=== PATIENT | male | born 1950 | race American Indian/Alaskan Native ===

== ENCOUNTER 2016-05-13 16:30 | Inpatient (IN) | payer MEDICAID, OTHER ==
--- NOTE | 2016-05-13 18:30 | CT ---
PROCEDURE: CT HEAD WITHOUT CONTRAST. HISTORY: R/O Bleed COMPARISON: None available. TECHNIQUE: Axial computed tomography images were obtained through the head/brain without intravenous contrast. Radiation dose: Total exam DLP = 1021.08 MGy-cm. This CT exam was performed using one or more of the following dose reduction techniques: Automated exposure control, adjustment of the mA and/or kV according to patient size, and/or use of iterative reconstruction technique. FINDINGS: HEMORRHAGE: No intracranial hemorrhage. BRAIN: Diffuse atrophy with prominence of the ventricles and sulci noted. No mass effect or edema. Mild scattered white matter hypodensities, which are nonspecific, but often seen with chronic microvascular ischemic disease. Please note that MRI with diffusion imaging is more sensitive in the detection of acute ischemic event. VENTRICLES: No hydrocephalus. CALVARIUM: Unremarkable. PARANASAL SINUSES: Unremarkable as visualized. No significant inflammatory changes. MASTOID AIR CELLS: Unremarkable as visualized. No inflammatory changes. OTHER FINDINGS: None. IMPRESSION: Generalized atrophy. Nonspecific white matter changes.
--- NOTE | 2016-05-13 18:49 | C.PDOC ---
History Of Present Illness 65 y/o male brought in by EMS from [facility]. Pt doesn't know why he is here. Pt states he was trying to take the train to [place] and that's the last he remembers. Pt reports diffuse body aches, mostly right arm and left leg. Pt denies drinking alcohol, fall, neck or head pain, chest pain, SOB, fever, chills , nausea, vomiting or any other complaints. Time Seen by Provider: 05/13/16 17:40 Chief Complaint (Nursing): Medical Clearance History Per: Patient History/Exam Limitations: clinical condition Onset/Duration Of Symptoms: Hrs Current Symptoms Are (Timing): Still Present Severity: Mild Recent travel outside of the [facility]: No Past Medical History Reviewed: Historical Data, Nursing Documentation, Vital Signs Vital Signs: Last Vital Signs Temp 97 F L 05/13/16 16:46 Pulse 81 05/13/16 16:46 Resp 20 05/13/16 16:46 BP 169/90 H 05/13/16 16:46 Pulse Ox 97 05/13/16 18:52 - Medical History PMH: Seizures Family History: States: Unknown Family Hx - Social History Hx Alcohol Use: Yes 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 Negative for: Neck Pain, Back Pain Neurological: Negative for: Headache Physical Exam - Physical Exam Appears: Non-toxic, No Acute Distress, Unkempt, Other (covered in feces; no external signs of trauma) Skin: Warm, Dry, No Rash Head: Atraumatic, Normacephalic, No Swelling, No Abrasion, No Laceration Nose: Normal Neck: Normal ROM, No Midline Cervical Tenderness, No Paracervical Tenderness, Supple Chest: Symmetrical, No Tenderness Cardiovascular: Rhythm Regular, No Murmur Respiratory: Normal Breath Sounds, No Rales, No Rhonchi, No Wheezing Gastrointestinal/Abdominal: Soft, No Tenderness Extremity: Normal ROM, Other (diffuse pain to palpation of all extremities) Extremity: Bilateral: Atraumatic Neurological/Psych: Normal Motor, Normal Sensation ED Course And Treatment O2 Sat by Pulse Oximetry: 97 (on room air) Pulse Ox Interpretation: Normal - CT Scan/US CT head Other Rad Studies (CT/US): Read By Radiologist, Radiology Report Reviewed CT/US Interpretation: Accession No. : [id number]. Patient Name / ID : JEOVANY PINA / [id number]. Exam Date : 05/13/2016 18:14:48 ( Approved ). Study Comment : Sex / Age : M / 65Y. Creator : Kristin Kern MD. Dictator : Kristin Kern MD. Nursery Helper : Diagnostic Radiologic Technologist : Kristin Kern MD. Approver2 : Report Date : 05/13/2016 18:27:41. My Comment : . PROCEDURE: CT HEAD WITHOUT CONTRAST. HISTORY: R/O Bleed. COMPARISON: None available. TECHNIQUE: Axial computed tomography images were obtained through the head/brain without intravenous contrast. Radiation dose: Total exam DLP = 1021.08 MGy-cm. This CT exam was performed using one or more of the following dose reduction techniques: Automated exposure control, adjustment of the mA and/or kV according to patient size, and/or use of iterative reconstruction technique. FINDINGS: HEMORRHAGE: No intracranial hemorrhage. BRAIN: Diffuse atrophy with prominence of the ventricles and sulci noted. No mass effect or edema. Mild scattered white matter hypodensities, which are nonspecific, but often seen with chronic microvascular ischemic disease. Please note that MRI with diffusion imaging is more sensitive in the detection of acute ischemic event. VENTRICLES: No hydrocephalus. CALVARIUM: Unremarkable. PARANASAL SINUSES: Unremarkable as visualized. No significant inflammatory changes. MASTOID AIR CELLS: Unremarkable as visualized. No inflammatory changes. OTHER FINDINGS: None. IMPRESSION: Generalized atrophy. Nonspecific white matter changes. Progress Note: Plan: labs, etoh level, head ct, shower Disposition - Disposition Disposition Time: 18:59 Condition: STABLE - Clinical Impression Clinical Impression: Pain - Scribe Statement The provider has reviewed the documentation as recorded by the Cesarioibmichele Shepard Provider Attestation: All medical record entries made by the Cesarioibe were at my direction and personally dictated by me. I have reviewed the chart and agree that the record accurately reflects my personal performance of the history, physical exam, medical decision making, and the department course for this patient. I have also personally directed, reviewed, and agree with the discharge instructions and disposition. Physician Patient Turnover Patient Signed Over To: Valerie Waterman Handoff Comments: homeless, states he does not recall why he is here, pending labs, head ct, dispo,
[2016-05-13 19:33] LABS: RBC URINE < 1 /hpf (0-3); URINE BILIRUBIN NEGATIVE (NEGATIVE); URINE BLOOD NEGATIVE (NEGATIVE); URINE COLOR Yellow (YELLOW); URINE GLUCOSE (UA) NORMAL (Normal); URINE KETONE NEGATIVE (NEGATIVE); URINE LEUKOCYTE ESTERASE NEG Leu/uL (Negative); URINE PROTEIN 2+ mg/dL (NEGATIVE); WBC URINE < 1 /hpf (0-5)
[2016-05-13 19:34] LABS: BASO # 0.1 K/uL (0.0-0.2); BASO % 0.8 % (0.0-2.0); EOS % 0.2 % (0.0-4.0); HEMATOCRIT 37.3 % (35.0-51.0); LYMPH # 0.9 K/uL (1.0-4.3); LYMPH % 13.3 % (20.0-40.0); MEAN CELL VOLUME 79.1 fL (80.0-94.0); MEAN CORPUSCULAR HGB CONC 31.6 g/dL (33.0-37.0); MEAN PLATELET VOLUME 9.9 fL (7.2-11.7); MONO # 0.5 K/uL (0.0-0.8); MONO % 8.1 % (0.0-10.0); NRBC % 0.1 % (0.0-2.0); RED CELL DISTRIBUTION WIDTH 14.7 % (11.5-14.5); WHITE BLOOD COUNT 6.8 K/uL (4.8-10.8)
[2016-05-13 19:39] LABS: CHLORIDE 101 mmol/L (98-107); SODIUM 137 mmol/L (132-148)
[2016-05-13 19:40] LABS: POTASSIUM 4.6 mmol/L (3.6-5.2)
[2016-05-13 19:42] LABS: ALKALINE PHOSPHATASE 160 U/L (38-126); ALT/SGPT 66 U/L (21-72); AST/SGOT 87 U/L (17-59); BILIRUBIN,TOTAL 1.2 mg/dL (0.2-1.3); BLOOD UREA NITROGEN 57 mg/dL (9-20); CALCIUM 8.6 mg/dl (8.6-10.4); CARBON DIOXIDE 19 mmol/L (22-30); GFR AFRICAN-AMERICAN 20; GLUCOSE,RANDOM 107 mg/dL (75-110); TOTAL PROTEIN 7.7 g/dL (6.3-8.3)
[2016-05-13 19:43] LABS: ALCOHOL SERUM < 10 mg/dl (0-10)
[2016-05-13] MEDS ORDERED: Sodium Chloride 0.9% 1,000 ML IV ONE (20:07)
--- NOTE | 2016-05-13 21:41 | CP.PCM.HP ---
<Ingrid Parikh - Last Filed: 05/13/16 22:35> History of Present Illness - History of Present Illness History of Present Illness: CC: " I came by ambulance" 65 year old male with PMHx of seizures, presents to the ED via ambulance after being found at [facility] covered in urine and feces. Patient is a poor historian. Reports he does not know what happened, just that he was about to take a train to [place]. He admits to history of seizures and states he has not had one in a long time. However, as per chart, patient was in the ED on 01/2016 for possible seizure and alcohol intoxication. Patient left AMA during that visit. Last reported seizure before that was in 09/2015. Patient does not take medications for his seizures and states he is homeless. He admits to bilateral leg aches that have been ongoing for the past couple of weeks. He reports he is having trouble walking secondary to the pain. Denies abdominal pain, nausea, vomiting, headaches, fevers, chills, chest pain, SOB, dyspnea on exertion. Patient did not wish to answer further ROS. PMHx: seizures Meds: none Allergies: none Family Hx: denies Surgeries: denies Social Hx: denies ever using drugs or alcohol. Denies tobacco use. As per chart , patient has history of alcohol and heroin use. PMD: none Present on Admission - Present on Admission Any Indicators Present on Admission: No Review of Systems - Constitutional Constitutional: absent: Chills, Fatigue, Fever - EENT Eyes: absent: Blurred Vision, Change in Vision - Cardiovascular Cardiovascular: absent: Chest Pain, Dyspnea - Respiratory Respiratory: absent: Cough, Dyspnea - Gastrointestinal Gastrointestinal: absent: Abdominal Pain, Constipation, Diarrhea, Nausea, Vomiting - Genitourinary Genitourinary: absent: Difficulty Urinating, Dysuria - Musculoskeletal Musculoskeletal: Arthralgias. absent: Back Pain, Numbness, Tingling - Integumentary Integumentary: absent: Lesions, Unusual Bruising, Wounds - Neurological Neurological: Headaches. 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) - SURGICAL HISTORY Hx Surgeries: No Other/Comment: Pt denies any medical history - ANESTHESIA Hx Anesthesia: No Meds Allergies/Adverse Reactions: Allergies Allergy/AdvReac Type Severity Reaction Status Date / Time No Known Allergies Allergy Verified 07/12/15 02:29 Physical Exam - Constitutional Appears: No Acute Distress, Unkempt - Head Exam Head Exam: ATRAUMATIC, NORMAL INSPECTION - Eye Exam Eye Exam: EOMI, Normal appearance - ENT Exam ENT Exam: Mucous Membranes Moist - Neck Exam Neck exam: Positive for: Full Rom, Normal Inspection - Respiratory Exam Respiratory Exam: Clear to Auscultation Bilateral, NORMAL BREATHING PATTERN - Cardiovascular Exam Cardiovascular Exam: REGULAR RHYTHM, +S1, +S2 - GI/Abdominal Exam GI & Abdominal Exam: Normal Bowel Sounds, Soft. absent: Distended, Tenderness - Extremities Exam Extremities exam: Positive for: full ROM, normal inspection, pedal edema, pedal pulses present - Back Exam Back exam: NORMAL INSPECTION - Neurological Exam Neurological exam: Alert, Oriented x3 - Expanded Neurological Exam Expanded Patient oriented to: person, place, time Upper motor neuron: Babinski Sign: Normal Sensory exam: Lower Extremity Light Touch: Normal, Upper Extremity Light Touch: Normal Coma Scale Eye Opening: To Voice Coma Scale Motor Response: OBEYS COMMANDS Coma Scale Verbal: Oriented Coma Scale Total: 14 - Psychiatric Exam Psychiatric exam: Flat Affect, Normal Mood - Skin Skin Exam: Dry, Normal Color, Warm Additional comments: +track chambers on bilateral forearms Results - Vital Signs Recent Vital Signs: Last Vital Signs Temp 98.8 F 05/13/16 20:40 Pulse 89 05/13/16 20:40 Resp 18 05/13/16 20:40 BP 170/81 H 05/13/16 20:40 Pulse Ox 98 05/13/16 20:40 - Labs Result Diagrams: 05/13/16 19:31 05/13/16 19:31 Assessment & Plan (1) Altered mental status, unspecified Assessment and Plan: Patient is AAO at time of exam. Patient was brought in by EMS after being found at [facility] covered in urine and feces, which patient does not remember. Patient is homeless, has history of seizures and is off medications. Patient also has history of ETOH use as per chart, which he denies. Head CT: Generalized atrophy. Nonspecific white matter changes. No intracranial hemorrhage. DANII negative on admission. Alcohol quant <10 UDS negative f/u EKG f/u Vit B12, Vit D f/u EEG in the AM Fall risk protocol Seizure precautions Aspiration precautions Status: Acute (2) History of seizure Assessment and Plan: Patient is homeless, has history of seizures and is off medications. Patient also has history of ETOH use as per chart, which he denies. Head CT: Generalized atrophy. Nonspecific white matter changes. No intracranial hemorrhage. f/u EEG in the AM Fall risk protocol Seizure precautions Aspiration precautions Status: Chronic (3) Renal insufficiency Assessment and Plan: f/u renal US f/u urine Na, Cr Status: Chronic (4) History of alcohol use Assessment and Plan: Likely reason for abnormal liver function tests. Patient does not show clinical signs of withdrawal. Alcohol quant <10 UDS negative MV PO daily Folic Acid PO daily Thiamine 100 mg PO daily Fall risk protocol Seizure precautions Aspiration precautions Status: Acute (5) Elevated brain natriuretic peptide (BNP) level Assessment and Plan: BNP on admission 2780. Patient with LE edema bilaterally. f/u EKG f/u CXR Will consider ECHO pending above studies. Low salt diet Status: Acute (6) HTN (hypertension) Assessment and Plan: 169/90 Will monitor for now and add medications as needed. Status: Acute (7) Prophylactic measure Assessment and Plan: Heparin SC Q8H Pepcid 20 mg PO BID Status: Acute <Jose Stallworth P - Last Filed: 05/24/16 22:17> Results - Vital Signs Recent Vital Signs: Last Vital Signs Temp 98.2 F 05/15/16 08:34 Pulse 70 05/15/16 08:34 Resp 20 05/15/16 08:34 BP 160/94 H 05/15/16 08:34 Pulse Ox 97 05/15/16 08:34 - Labs Result Diagrams: 05/14/16 10:44 05/14/16 10:44 Attending/Attestation - Attestation I have personally seen and examined this patient.: Yes I have fully participated in the care of the patient.: Yes I have reviewed all pertinent clinical information: Yes
[2016-05-13] MEDS: Sodium Chloride 0.9% 1,000 ML IV SCH (23:04)
[2016-05-13] MEDS ORDERED: Sodium Chloride 0.9% 1,000 ML ONE (23:08)
[2016-05-14 03:04] LABS: CREATININE, RANDOM URINE 53.8 mg/dL
[2016-05-14] MEDS ORDERED: Multiple Vitamins Tab PO SCH (10:00)
--- NOTE | 2016-05-14 10:39 | RAD ---
PROCEDURE: CHEST RADIOGRAPH, 1 VIEW HISTORY: leg swelling, AMS COMPARISON: None available. FINDINGS: LUNGS: Clear. PLEURA: No pneumothorax or pleural fluid seen. CARDIOVASCULAR: Normal. OSSEOUS STRUCTURES: No significant abnormalities. VISUALIZED UPPER ABDOMEN: Normal. OTHER FINDINGS: None. IMPRESSION: No active disease.
[2016-05-14] MEDS: Sodium Chloride 0.9% 1,000 ML IV SCH (10:48)
[2016-05-14 10:53] LABS: BASO % 0.9 % (0.0-2.0); EOS % 0.9 % (0.0-4.0); HEMATOCRIT 34.9 % (35.0-51.0); LYMPH # 1.1 K/uL (1.0-4.3); LYMPH % 22.1 % (20.0-40.0); MEAN CELL VOLUME 79.7 fL (80.0-94.0); MEAN CORPUSCULAR HEMOGLOBIN 24.9 pg (27.0-31.0); MEAN CORPUSCULAR HGB CONC 31.2 g/dL (33.0-37.0); MEAN PLATELET VOLUME 10.7 fL (7.2-11.7); MONO # 0.5 K/uL (0.0-0.8); MONO % 9.5 % (0.0-10.0); RED CELL DISTRIBUTION WIDTH 14.5 % (11.5-14.5); WHITE BLOOD COUNT 5.1 K/uL (4.8-10.8)
[2016-05-14 11:07] LABS: POTASSIUM 4.2 mmol/L (3.6-5.2)
[2016-05-14 11:09] LABS: BILIRUBIN,TOTAL 0.9 mg/dL (0.2-1.3)
[2016-05-14 11:10] LABS: ALB/GLOB RATIO 0.9 (1.0-2.1); PHOSPHOROUS 4.2 mg/dL (2.5-4.5); TOTAL PROTEIN 6.7 g/dL (6.3-8.3)
--- NOTE | 2016-05-14 13:42 | US ---
PROCEDURE: Ultrasound of the Kidneys HISTORY: renal failure COMPARISON: None available. TECHNIQUE: Sonogram of the kidneys. FINDINGS: Limited study. RIGHT KIDNEY: Measures: 9.8 x 6.5 x 4.7 cm. Mild fullness of the right renal pelvis. No obstructing calculus or renal cysts identified. LEFT KIDNEY: Measures: 9.1 x 5.0 x 3.9 cm. Mild fullness of the left renal collecting system. No obstructing calculus or renal cysts identified. OTHER FINDINGS: Prevoid urinary bladder measures approximately 9.2 x 7.3 x 7.4 cm, calculated volume 258.9 mL. IMPRESSION: Limited study. Mild fullness of the right renal pelvis. Mild fullness of the left renal collecting system. No obstructing calculus identified. Prevoid urinary bladder, calculated volume 258.9 mL.
--- NOTE | 2016-05-14 14:35 | CP.PCM.PN ---
<Gerald Kyle - Last Filed: 05/14/16 14:31> Subjective - Date & Time of Evaluation Date of Evaluation: 05/14/16 Time of Evaluation: 14:31 - Subjective Subjective: PGY-1 note for medicine service Pt seen and examined at bedside. Pt reports not overnight events. Patient states he does not feel good and is experiencing b/l leg pain. Patient reports pain as 8/10. Patient is unable to describe pain, but just states that he doesn' t feel like he can walk on them. Patient still has no recollection of previous days events and cause of admission. Denies fevers, chills, chest pain, sob, nausea or vomiting Objective - Vital Signs/Intake and Output Vital Signs (last 24 hours): Temp Pulse Resp BP Pulse Ox 98.2 F 85 18 156/79 H 96 05/14/16 07:00 05/14/16 07:00 05/14/16 07:00 05/14/16 07:00 05/14/16 07:00 Intake and Output: 05/14/16 05/14/16 06:59 18:59 Output Total 600 Balance -600 - Medications Medications: Current Medications Amlodipine Besylate (Norvasc) 5 mg PO DAILY [facility] Last Admin: 05/14/16 10:47 Dose: 5 mg Famotidine (Pepcid) 20 mg PO DAILY [facility] Folic Acid (Folic Acid) 1 mg PO DAILY [facility] Last Admin: 05/14/16 10:48 Dose: 1 mg Heparin Sodium (Porcine) (Heparin) 5,000 units SC Q8 [facility] Last Admin: 05/14/16 14:22 Dose: 5,000 units Sodium Chloride (Sodium Chloride 0.9%) 1,000 mls @ 100 mls/hr IV .Q10H [facility] Last Admin: 05/14/16 10:48 Dose: 100 mls/hr Influenza Virus Vaccine (Afluria) 45 mcg IM .ONCE ONE Stop: 05/16/16 14:01 Multivitamins (Hexavitamin) 1 tab PO DAILY [facility] Last Admin: 05/14/16 10:47 Dose: 1 tab Pneumococcal Polyvalent Vaccine (Pneumovax 23 Vaccine) 0.5 ml IM .ONCE ONE Stop: 05/16/16 14:01 Thiamine HCl (Vitamin B1 Tab) 100 mg PO DAILY [facility] Last Admin: 05/14/16 10:48 Dose: 100 mg - Labs Labs: 05/14/16 10:44 05/14/16 10:44 - Constitutional Appears: Non-toxic, No Acute Distress - Head Exam Head Exam: ATRAUMATIC, NORMOCEPHALIC - ENT Exam ENT Exam: Mucous Membranes Moist - Respiratory Exam Respiratory Exam: Clear to Ausculation Bilateral, NORMAL BREATHING PATTERN - Cardiovascular Exam Cardiovascular Exam: +S1, +S2 - GI/Abdominal Exam GI & Abdominal Exam: Soft, Normal Bowel Sounds - Neurological Exam Neurological Exam: Alert, Awake - Psychiatric Exam Psychiatric exam: Flat Affect - Skin Skin Exam: Dry, Warm Assessment and Plan - Assessment and Plan (Free Text) Assessment: Altered mental status, unspecified - Currently AAO x 3 - Patient is homeless, has history of seizures and is off medications. Pt reports never having medications - Patient also has history of ETOH use as per chart, which he denies. - Head CT: Generalized atrophy. Nonspecific white matter changes. No intracranial hemorrhage. - DANII negative on admission - follow serial DANII - f/u - Alcohol quant <10 - UDS negative - Ammonia - wnl - EKG - NSR at 88, left ant fascicular block - Vit B12: wnl, Vit D: low - EEG in the - Neuro ([place]) consulted - help appreciated - f/u recs - Fall risk protocol - Seizure precautions - Aspiration precautions History of seizure - Head CT: Generalized atrophy. Nonspecific white matter changes. No intracranial hemorrhage. - f/u EEG in the [facility] ([place]) consulted - help appreciated - f/u recs - Fall risk protocol - Seizure precautions - Aspiration precautions Renal insufficiency - renal US - Limited study. Mild fullness of the right renal pelvis. Mild fullness of the left renal collecting system. No obstructing calculus identified.Prevoid urinary bladder, calculated volume 258.9 mL. - urine Na, Cr - 65, 54 - Cr trending down - Monitor History of alcohol use - Likely reason for abnormal liver function tests. - Patient does not show clinical signs of withdrawal. - Alcohol quant <10 - UDS negative - MV PO daily - Folic Acid PO daily - Thiamine 100 mg PO daily - Fall risk protocol - Seizure precautions - Aspiration precautions Elevated brain natriuretic peptide (BNP) level - BNP on admission 2780. Patient with LE edema bilaterally 1+ - EKG - NSR at 88, left ant fascicular block - CXR - no active disease - Ordered echo - pending read - Low salt diet HTN (hypertension) - Elevated - Added norvasc 5mg daily - Continue to monitor LE pain - 1+ pitting edema - A1C - 6.2 - Dopplers - f/u Prophylactic measure - Heparin SC Q8H - Pepcid 20 mg PO BID <Yue Doshi V - Last Filed: 05/14/16 17:44> Objective - Vital Signs/Intake and Output Vital Signs (last 24 hours): Temp Pulse Resp BP Pulse Ox 98.4 F 58 L 20 149/78 95 05/14/16 16:10 05/14/16 16:58 05/14/16 16:10 05/14/16 16:10 05/14/16 16:10 Intake and Output: 05/14/16 05/14/16 06:59 18:59 Output Total 600 Balance -600 - Medications Medications: Current Medications Amlodipine Besylate (Norvasc) 5 mg PO DAILY [facility] Last Admin: 05/14/16 10:47 Dose: 5 mg Famotidine (Pepcid) 20 mg PO DAILY [facility] Folic Acid (Folic Acid) 1 mg PO DAILY [facility] Last Admin: 05/14/16 10:48 Dose: 1 mg Heparin Sodium (Porcine) (Heparin) 5,000 units SC Q8 [facility] Last Admin: 05/14/16 14:22 Dose: 5,000 units Sodium Chloride (Sodium Chloride 0.9%) 1,000 mls @ 100 mls/hr IV .Q10H [facility] Last Admin: 05/14/16 10:48 Dose: 100 mls/hr Influenza Virus Vaccine (Afluria) 45 mcg IM .ONCE ONE Stop: 05/16/16 14:01 Multivitamins (Hexavitamin) 1 tab PO DAILY [facility] Last Admin: 05/14/16 10:47 Dose: 1 tab Pneumococcal Polyvalent Vaccine (Pneumovax 23 Vaccine) 0.5 ml IM .ONCE ONE Stop: 05/16/16 14:01 Thiamine HCl (Vitamin B1 Tab) 100 mg PO DAILY [facility] Last Admin: 05/14/16 10:48 Dose: 100 mg - Labs Labs: 05/14/16 10:44 05/14/16 10:44 Attending/Attestation - Attestation I have personally seen and examined this patient.: Yes I have fully participated in the care of the patient.: Yes Notes (Text): Patient seen, examined and case discussed with day-time resident. Patient seen this morning. Patient is AAOX3, patient reports [place] [facility]. Patient unable to describe circumstances which prompted the police pick him up and bring to the hospital. Patient has a history of seizures , reports last seizure was 2 years ago, and reports he does not take any medications. Patient denies alcohol and denies drug use. patient reports his main concern is his legs. Patient reports he has pain in the legs. Patient ordered for lower venous dopplers r/o DVT. No events noted during the day. 1) Altered mental status, unspecified * Currently AAO x 3 * Patient is homeless, has history of seizures and is off medications. Pt reports never having medications * Patient also has history of ETOH use as per chart, which he denies. * Head CT (05/13/16): Generalized atrophy. Nonspecific white matter changes. No intracranial hemorrhage. * DANII negative on admission - follow serial DANII - f/u * Alcohol quant <10; patient does not appear to be in withdrawal, no observed tremors * UDS negative * Ammonia - wnl * EKG - NSR at 88, left ant fascicular block; DANII @5:30PM and 10:30PM * Vit B12: wnl, Vit D: low * EEG in the AM * Neuro ([place]) consulted - help appreciated * Fall risk protocol * Seizure precautions * Aspiration precautions 2) History of seizure * Head CT (05/13/16): Generalized atrophy. Nonspecific white matter changes. No intracranial hemorrhage. * f/u EEG in the AM * Neuro ([place]) consulted - help appreciated * Fall risk protocol * Seizure precautions * Aspiration precautions * prolactin normal 3) Acute on Chronic Renal insufficiency * renal US (05/14/16) - Limited study. Mild fullness of the right renal pelvis. Mild fullness of the left renal collecting system. No obstructing calculus identified.Prevoid urinary bladder, calculated volume 258.9 mL. * Bladder PRN to be performed by nurse; patient reports he urinates * Prior GFR: 20-30s; prior Cr: 2.5 about one year ago * urine Na, Cr - 65, 54 * UA shows protein 4) History of alcohol use * mild transaminitis * Patient does not show clinical signs of withdrawal. * Alcohol quant <10 * UDS negative * MV1 1 tab PO daily * Folic Acid PO daily * Thiamine 100 mg PO daily * Fall risk protocol * Seizure precautions * Aspiration precautions 5) Elevated brain natriuretic peptide (BNP) level * BNP on admission 2780. Patient with LE edema bilaterally 1+; likely due to renal disease * EKG - NSR at 88, left ant fascicular block * CXR - no active disease * Echo (05/14/16): left ventricle is normal size, normal ventricular wall thickness, left ventricul function is normal, left ventricular ejection, fraction is within the normal range, normal LV segmental wall motion, grade 1- abnormal relazation, mitral regurgitation is trace to mild * Low salt diet 6) HTN (hypertension) * Norvasc 5mg daily; may need storm or arb * d/c IV fluids * monitor vital signs 7) Lower extremity pain * trace edema * Dopplers (venous dopplers) negative 8) Anemia * likely secondary to anemia of chronic disease * ordered for iron studies, reticulocyte count, B12, folate, and occult blood 9)Prophylactic measure * DVT ppx: Heparin 5000 units SC Q8H * GI ppx: Pepcid 20 mg PO daily * PT eval
--- NOTE | 2016-05-14 14:40 | VASCLAB ---
PROCEDURE: Lower Extremity Venous Duplex Exam. HISTORY: Leg swelling PRIORS: None. TECHNIQUE: Bilateral common femoral, femoral, popliteal and posterior tibial, peroneal and great saphenous veins were evaluated. Flow was assessed with color Doppler, compressibility, assessment of phasic flow and augmentation response. Report prepared by DIDI Kaiser, RVT FINDINGS: RIGHT: 1. Common Femoral Vein: 1.1. Compressibility - Fully compressible: Thrombus - None : Flow - Phasic: Augmentation -Normal: Reflux - None. 2. Femoral Vein: 2.1. Compressibility - Fully compressible: Thrombus - None : Flow - Phasic: Augmentation -Normal: Reflux - None. 3. Popliteal Vein: 3.1. Compressibility - Fully compressible: Thrombus - None : Flow - Phasic: Augmentation -Normal: Reflux - None. 4. Posterior Tibial Vein: 4.1. Compressibility - Fully compressible: Thrombus - None: Flow - Phasic: Augmentation -Normal: Reflux - None. 5. Peroneal Vein: 5.1. Compressibility - Fully compressible: Thrombus - None: Flow - Phasic: Augmentation -Normal: Reflux - None. 6. Great Saphenous Vein: 6.1. Compressibility - Fully compressible: Thrombus - None: Flow - Phasic: Augmentation - Normal: Reflux - None. LEFT: 1. Common Femoral Vein: 1.1. Compressibility - Fully compressible: Thrombus - None: Flow - Phasic: Augmentation -Normal: Reflux - None. 2. Femoral Vein: 2.1. Compressibility - Fully compressible: Thrombus - None: Flow - Phasic: Augmentation -Normal: Reflux - None. 3. Popliteal Vein: 3.1. Compressibility - Fully compressible: Thrombus - None : Flow - Phasic: Augmentation -Normal: Reflux - None. 4. Posterior Tibial Vein: 4.1. Compressibility - Fully compressible: Thrombus - None: Flow - Phasic: Augmentation -Normal: Reflux - None. 5. Peroneal Vein: 5.1. Compressibility - Fully compressible: Thrombus - None: Flow - Phasic: Augmentation -Normal: Reflux - None. 6. Great Saphenous Vein: 6.1. Compressibility - Fully compressible: Thrombus - None: Flow - Phasic: Augmentation - Normal: Reflux - None. OTHER FINDINGS: Right: None significant. Left: None significant. IMPRESSION: Right: No evidence of deep or superficial vein thrombosis of the right lower extremity. Normal valve function noted of the right side. Left: No evidence of deep or superficial vein thrombosis of the left lower extremity. Normal valve function noted of the left side.
--- NOTE | 2016-05-14 15:21 | CARD ---
APPROVED REPORT EXAM: Two-dimensional and M-mode echocardiogram with Doppler and color Doppler. Other Information Quality : GoodRhythm : INDICATION Congestive Heart Failure ALCOHOL ABUSED, ELEVATED BNP RISK FACTORS Hypertension Smoking M-Mode DIMENSIONS RVDd1.89 (2.1-3.2cm)Left Atrium (MM)3.06 (2.5-4.0cm) IVSd1.01 (0.7-1.1cm)Aortic Root2.83 (2.2-3.7cm) LVDd5.53 (4.0-5.6cm)Aortic Cusp Exc.2.15 (1.5-2.0cm) PWd1.17 (0.7-1.1cm)FS (%) 36 % LVDs3.51 (2.0-3.8cm)LVEF (%)66 (>50%) Mitral Valve MV E Rfsqxgum13.7cm/sMV A Pqkrjcyg13.9cm/sE/A ratio0.8 TDI E/Lateral E'0.0E/Medial E'0.0 Tricuspid Valve TR Peak [id number]/sTR Peak Gr.[id number] LEFT VENTRICLE The left ventricle is normal size. There is normal left ventricular wall thickness. The left ventricular function is normal. The left ventricular ejection fraction is within the normal range. There is normal LV segmental wall motion. Transmitral Doppler flow pattern is Grade I-abnormal relaxation pattern. RIGHT VENTRICLE The right ventricle is normal size. There is normal right ventricular wall thickness. The right ventricular systolic function is normal. ATRIA The left atrium size is normal. The right atrium size is normal. AORTIC VALVE The aortic valve is normal in structure. No aortic regurgitation is present. MITRAL VALVE The mitral valve is normal in structure. Mitral regurgitation is trace to mild. TRICUSPID VALVE There is trace tricuspid regurgitation. PULMONIC VALVE There is trace pulmonic valvular regurgitation. GREAT VESSELS The aortic root is normal in size. The IVC is normal in size and collapses >50% with inspiration. PERICARDIAL EFFUSION There is no pericardial effusion. <Conclusion> The left ventricle is normal size. There is normal left ventricular wall thickness. The left ventricular function is normal. The left ventricular ejection fraction is within the normal range. There is normal LV segmental wall motion. Transmitral Doppler flow pattern is Grade I-abnormal relaxation pattern. Mitral regurgitation is trace to mild.
[2016-05-14 16:07] VITALS: RESP 20
--- NOTE | 2016-05-14 16:49 | CARD ---
APPROVED REPORT EKG Measurement Heart [id number] <Conclusion> Normal sinus rhythm Left anterior fascicular block Moderate voltage criteria for LVH, may be normal variant Abnormal ECG
[2016-05-14 19:12] LABS: IRON 39 ug/dL (49-181)
[2016-05-14 20:15] LABS: FOLATE > 20.0 ng/mL
[2016-05-15] MEDS ORDERED: Ergocalciferol 50,000 Intl Units Cap PO SCH (00:15)
--- NOTE | 2016-05-15 00:29 | CP.PCM.CON ---
History of Present Illness - History of Present Illness History of Present Illness: 65 year old male with PMHx of seizures, presents to the ED via ambulance after being found at [facility] covered in urine and feces. Patient is a poor historian. Reports he does not know what happened, just that he was about to take a train to [place]. He admits to history of seizures and states he has not had one in a long time. However, as per chart, patient was in the ED on 2015 for possible seizure and alcohol intoxication. Patient left AMA during that visit. Last reported seizure before that was in 09/2015. Patient does not take medications for his seizures and states he is homeless. He admits to bilateral leg aches that have been ongoing for the past couple of weeks. He reports he is having trouble walking secondary to the pain. Denies abdominal pain, nausea, vomiting, headaches, fevers, chills, chest pain, SOB, dyspnea on exertion. Patient did not wish to answer further ROS. Patient states he does not feel good and is experiencing b/l leg pain. Patient reports pain as 8/10. Patient states that he doesn't feel like he can walk on them. Patient still has no recollection of previous days events and cause of admission. Denies fevers, chills, chest pain, sob, nausea or vomiting PMHx: seizures No H/O Glaucoma, Kidney stones, Gall bladder stones or any Known Drug Allergies, Not allergic to Topamax Meds: none Allergies: none Family Hx: denies Surgeries: denies Social Hx: denies ever using drugs or alcohol. Denies tobacco use. As per chart , patient has history of alcohol and heroin use. PMD: none Renal insufficiency Assessment and Plan: f/u renal US f/u urine Na, Cr Status: Chronic History of alcohol use Assessment and Plan: Likely reason for abnormal liver function tests. Patient does not show clinical signs of withdrawal. Alcohol quant <10 UDS negative BNP on admission 2780. Patient with LE edema bilaterally. 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) - SURGICAL HISTORY Hx Surgeries: No Other/Comment: Pt denies any medical history - ANESTHESIA Hx Anesthesia: No Meds Allergies/Adverse Reactions: Allergies Allergy/AdvReac Type Severity Reaction Status Date / Time No Known Allergies Allergy Verified 07/12/15 02:29 - Medications Medications: Current Medications Amlodipine Besylate (Norvasc) 5 mg PO DAILY [facility] Last Admin: 05/14/16 10:47 Dose: 5 mg Calcium Carbonate (Oscal) 500 mg PO BID [facility] Ergocalciferol (Drisdol 50,000 Intl Units Cap) 1 cap PO Q7D [facility] Famotidine (Pepcid) 20 mg PO DAILY [facility] Folic Acid (Folic Acid) 1 mg PO DAILY [facility] Last Admin: 05/14/16 10:48 Dose: 1 mg Heparin Sodium (Porcine) (Heparin) 5,000 units SC Q8 [facility] Last Admin: 05/14/16 21:31 Dose: 5,000 units Influenza Virus Vaccine (Afluria) 45 mcg IM .ONCE ONE Stop: 05/16/16 14:01 Multivitamins (Hexavitamin) 1 tab PO DAILY [facility] Last Admin: 05/14/16 10:47 Dose: 1 tab Pneumococcal Polyvalent Vaccine (Pneumovax 23 Vaccine) 0.5 ml IM .ONCE ONE Stop: 05/16/16 14:01 Thiamine HCl (Vitamin B1 Tab) 100 mg PO DAILY [facility] Last Admin: 05/14/16 10:48 Dose: 100 mg Physical Exam - Neurological Exam Additional comments: Mental Status: Awake alert, Oriented X 3, aggressive and Paranoid, hard to keep a conversation. Not cooperative, refuses to answer many questions. Cranial Nerves II to XII, no deficits Motor: Normal tone, power, muscle Bulk, DTR hard to assess due to his lack of cooperation. Toes are down going Sensory: Intact Pain Cerebellar: Hard to assess Stature and Gait: Able to stand, claims he is unable to walk. Results - Vital Signs Recent Vital Signs: Last Vital Signs Temp 98.4 F 05/14/16 16:10 Pulse 58 L 05/14/16 16:58 Resp 20 05/14/16 16:10 BP 178/92 H 05/14/16 17:09 Pulse Ox 95 05/14/16 16:10 - Labs Result Diagrams: 05/14/16 10:44 05/14/16 10:44 Labs: Laboratory Results - last 24 hr 05/14/16 05/14/16 05/14/16 01:03 10:44 11:13 WBC 5.1 RBC 4.37 L Hgb 10.9 L Hct 34.9 L MCV 79.7 L MCH 24.9 L MCHC 31.2 L RDW 14.5 Plt Count 132 MPV 10.7 Neut % (Auto) 66.6 Lymph % (Auto) 22.1 [place] % (Auto) 9.5 Eos % (Auto) 0.9 Baso % (Auto) 0.9 Neut # 3.4 Lymph # 1.1 [place] # 0.5 Eos # 0.0 Baso # 0.0 Retic Count Sodium 139 Potassium 4.2 Chloride 105 Carbon Dioxide 19 L Anion Gap 19 BUN 58 H Creatinine 3.5 H Est GFR ( Amer) 21 Est GFR (Non-Af Amer) 18 Random Glucose 114 H Hemoglobin A1c 6.2 Calcium 8.0 L Phosphorus 4.2 Magnesium 2.0 Iron TIBC % Saturation Ferritin Total Bilirubin 0.9 AST 105 H D ALT 61 Alkaline Phosphatase 131 H Ammonia 13 Total Creatine Kinase 79 CK-MB (Mass) Troponin I, Quant Total Protein 6.7 Albumin 3.2 L Globulin 3.5 Albumin/Globulin Ratio 0.9 L Vitamin B12 508 25-OH Vitamin D Total 14.1 L Folate Ur Random Creatinine 53.8 Ur Random Sodium 65 Hepatitis A IgM Ab Hep Bs Antigen Hep B Core IgM Ab Hepatitis C Antibody HIV 1&2 Antibody Screen Negative 05/14/16 05/14/16 18:49 20:52 WBC RBC Hgb Hct MCV MCH MCHC RDW Plt Count MPV Neut % (Auto) Lymph % (Auto) [place] % (Auto) Eos % (Auto) Baso % (Auto) Neut # Lymph # [place] # Eos # Baso # Retic Count 0.6 Sodium Potassium Chloride Carbon Dioxide Anion Gap BUN Creatinine Est GFR ( Amer) Est GFR (Non-Af Amer) Random Glucose Hemoglobin A1c Calcium Phosphorus Magnesium Iron 39 L TIBC 305 % Saturation 14 L Ferritin 89.1 Total Bilirubin AST ALT Alkaline Phosphatase Ammonia Total Creatine Kinase 69 CK-MB (Mass) 1.26 Troponin I, Quant 0.0150 Total Protein Albumin Globulin Albumin/Globulin Ratio Vitamin B12 25-OH Vitamin D Total Folate > 20.0 Ur Random Creatinine Ur Random Sodium Hepatitis A IgM Ab Negative Hep Bs Antigen Negative Hep B Core IgM Ab Negative Hepatitis C Antibody Reactive H HIV 1&2 Antibody Screen Assessment & Plan (1) Altered mental status, unspecified Status: Acute (2) CHF (congestive heart failure) Status: Acute (3) Elevated brain natriuretic peptide (BNP) level Status: Acute (4) HTN (hypertension) Status: Acute (5) History of alcohol use Status: Acute (6) Pain Status: Acute (7) History of seizure Assessment and Plan: Start Topamax 50 mg Q 12 hrs, will help stopping his seizures and controlling Alcohol abuse. W/u for Seizures. Status: Chronic
[2016-05-15 02:37] VITALS: O2SAT 97
[2016-05-15 08:35] VITALS: BP 160/94; PULSE 70; TEMP 98.2
--- NOTE | 2016-05-15 09:27 | CP.PCM.DIS ---
<Gerald Kyle - Last Filed: 05/15/16 14:49> Provider - Provider Date of Admission: 05/13/16 20:59 Attending physician: Jose Stallworth MD Primary care physician: none Consults: Neuro - Priscila Time Spent in preparation of Discharge (in minutes): 31 Hospital Course - Lab Results Lab Results: Most Recent Lab Values WBC 5.1 K/uL (4.8-10.8) 05/14/16 10:44 RBC 4.37 Mil/uL (4.40-5.90) L 05/14/16 10:44 Hgb 10.9 g/dL (12.0-18.0) L 05/14/16 10:44 Hct 34.9 % (35.0-51.0) L 05/14/16 10:44 MCV 79.7 fL (80.0-94.0) L 05/14/16 10:44 MCH 24.9 pg (27.0-31.0) L 05/14/16 10:44 MCHC 31.2 g/dL (33.0-37.0) L 05/14/16 10:44 RDW 14.5 % (11.5-14.5) 05/14/16 10:44 Plt Count 132 K/uL (130-400) 05/14/16 10:44 MPV 10.7 fL (7.2-11.7) 05/14/16 10:44 Neut % (Auto) 66.6 % (50.0-75.0) 05/14/16 10:44 Lymph % (Auto) 22.1 % (20.0-40.0) 05/14/16 10:44 [place] % (Auto) 9.5 % (0.0-10.0) 05/14/16 10:44 Eos % (Auto) 0.9 % (0.0-4.0) 05/14/16 10:44 Baso % (Auto) 0.9 % (0.0-2.0) 05/14/16 10:44 Neut # 3.4 K/uL (1.8-7.0) 05/14/16 10:44 Lymph # 1.1 K/uL (1.0-4.3) 05/14/16 10:44 [place] # 0.5 K/uL (0.0-0.8) 05/14/16 10:44 Eos # 0.0 K/uL (0.0-0.7) 05/14/16 10:44 Baso # 0.0 K/uL (0.0-0.2) 05/14/16 10:44 Retic Count 0.6 % (0.5-1.5) 05/14/16 18:49 Sodium 139 mmol/L (132-148) 05/14/16 10:44 Potassium 4.2 mmol/L (3.6-5.2) 05/14/16 10:44 Chloride 105 mmol/L (98-107) 05/14/16 10:44 Carbon Dioxide 19 mmol/L (22-30) L 05/14/16 10:44 Anion Gap 19 (10-20) 05/14/16 10:44 BUN 58 mg/dL (9-20) H 05/14/16 10:44 Creatinine 3.5 MG/DL (0.8-1.5) H 05/14/16 10:44 Est GFR ( Amer) 21 05/14/16 10:44 Est GFR (Non-Af Amer) 18 05/14/16 10:44 Random Glucose 114 mg/dL (75-110) H 05/14/16 10:44 Hemoglobin A1c 6.2 % (4.2-6.5) 05/14/16 10:44 Calcium 8.0 mg/dl (8.6-10.4) L 05/14/16 10:44 Phosphorus 4.2 mg/dL (2.5-4.5) 05/14/16 10:44 Magnesium 2.0 mg/dL (1.6-2.3) 05/14/16 10:44 Iron 39 ug/dL (49-181) L 05/14/16 18:49 TIBC 305 ug/dL (250-450) 05/14/16 18:49 % Saturation 14 (20-55) L 05/14/16 18:49 Ferritin 89.1 ng/mL 05/14/16 18:49 Total Bilirubin 0.9 mg/dL (0.2-1.3) 05/14/16 10:44 AST 105 U/L (17-59) H D 05/14/16 10:44 ALT 61 U/L (21-72) 05/14/16 10:44 Alkaline Phosphatase 131 U/L (38-126) H 05/14/16 10:44 Ammonia 13 umol/L (9-33) 05/14/16 10:44 Total Creatine Kinase 69 U/L (55-170) 05/14/16 20:52 CK-MB (Mass) 1.26 ng/mL (0.0-3.38) 05/14/16 20:52 Troponin I 0.0210 ng/mL (0.00-0.120) 05/13/16 19:31 Troponin I, Quant 0.0150 ng/mL (0.00-0.120) 05/14/16 20:52 NT-Pro-B Natriuret Pep 2780 pg/mL (0-900) H 05/13/16 19:31 Total Protein 6.7 g/dL (6.3-8.3) 05/14/16 10:44 Albumin 3.2 g/dL (3.5-5.0) L 05/14/16 10:44 Globulin 3.5 gm/dL (2.2-3.9) 05/14/16 10:44 Albumin/Globulin Ratio 0.9 (1.0-2.1) L 05/14/16 10:44 Vitamin B12 508 pg/mL (239-931) 05/14/16 10:44 25-OH Vitamin D Total 14.1 NG/ML (30.0-100.0) L 05/14/16 11:13 Folate > 20.0 ng/mL 05/14/16 18:49 Urine Color Yellow (YELLOW) 05/13/16 19:25 Urine Clarity Clear (Clear) 05/13/16 19:25 Urine pH 6.0 (5.0-8.0) 05/13/16 19:25 Ur Specific [place] 1.012 (1.003-1.030) 05/13/16 19:25 Urine Protein 2+ mg/dL (NEGATIVE) H 05/13/16 19:25 Urine Glucose (UA) Normal mg/dL (Normal) 05/13/16 19:25 Urine Ketones Negative mg/dL (NEGATIVE) 05/13/16 19:25 Urine Blood Negative (NEGATIVE) 05/13/16 19:25 Urine Nitrate Negative (NEGATIVE) 05/13/16 19:25 Urine Bilirubin Negative (NEGATIVE) 05/13/16 19:25 Urine Urobilinogen 2.0 mg/dL (0.2-1.0) 05/13/16 19:25 Ur Leukocyte Esterase Neg Ita/uL (Negative) 05/13/16 19:25 Urine WBC (Auto) < 1 /hpf (0-5) 05/13/16 19:25 Urine RBC (Auto) < 1 /hpf (0-3) 05/13/16 19:25 Ur Random Creatinine 53.8 mg/dL 05/14/16 01:03 Ur Random Sodium 65 mmol/L 05/14/16 01:03 Urine Opiates Screen Negative (NEGATIVE) 05/13/16 19:25 Urine Methadone Screen Negative (NEGATIVE) 05/13/16 19:25 Ur Barbiturates Screen Negative (NEGATIVE) 05/13/16 19:25 Phenytoin < 3.0 ug/mL (10-20) L 05/13/16 21:37 Ur Phencyclidine Scrn Negative (NEGATIVE) 05/13/16 19:25 Ur Amphetamines Screen Negative (NEGATIVE) 05/13/16 19:25 U Benzodiazepines Scrn Negative (NEGATIVE) 05/13/16 19:25 U Oth Cocaine Metabols Negative (NEGATIVE) 05/13/16 19:25 U Cannabinoids Screen Negative (NEGATIVE) 05/13/16 19:25 Alcohol, Quantitative < 10 mg/dl (0-10) 05/13/16 19:31 Hepatitis A IgM Ab Negative (NEGATIVE) 05/14/16 18:49 Hep Bs Antigen Negative (NEGATIVE) 05/14/16 18:49 Hep B Core IgM Ab Negative (NEGATIVE) 05/14/16 18:49 Hepatitis C Antibody Reactive (NEGATIVE) H 05/14/16 18:49 HIV 1&2 Antibody Screen Negative (NEGATIVE) 05/14/16 11:13 - Hospital Course Hospital Course: On hospital admission 65 year old male with PMHx of seizures, presents to the ED via ambulance after being found at [facility] covered in urine and feces. Patient is a poor historian. Reports he does not know what happened, just that he was about to take a train to [place]. He admits to history of seizures and states he has not had one in a long time. However, as per chart, patient was in the ED on 01/2016 for possible seizure and alcohol intoxication. Patient left AMA during that visit. Last reported seizure before that was in 09/2015. Patient does not take medications for his seizures and states he is homeless. He admits to bilateral leg aches that have been ongoing for the past couple of weeks. He reports he is having trouble walking secondary to the pain. Denies abdominal pain, nausea, vomiting, headaches, fevers, chills, chest pain, SOB, dyspnea on exertion. Patient did not wish to answer further ROS. On hospital course Pt admitted for altered mental status. Full work up was initiated which included a head CT, serial DANII's, EEG, renal US and neuro consult. Head CT was negative and initial blood work was unremarkable except for an elevated Cr. However, one the morning of the 3rd day of admission, pt became hostile during evaluation. Pt stated that he wanted to be left alone and would use physical force if anyone attempted to evaluate him. It was explained that while in the hospital he would need to allow daily evaluations/tests. Pt did not want this and chose to leave AMA. Pt aware and understood risks involved with leaving AMA. He was given a prescription for his elevated BP before he left. Amlodipine 5mg daily Diagnoses Altered mental status Hypertension Renal insufficiency - Date & Time of H&P Date of H&P: 05/13/16 Time of H&P: 21:37 Discharge Exam - Head Exam Head Exam: ATRAUMATIC, NORMOCEPHALIC Additional comments: Pt refused physical exam Discharge Plan - Discharge Medications Prescriptions: amLODIPine [Norvasc] 5 mg PO DAILY #30 tab - Follow Up Plan Condition: FAIR Disposition: AGAINST MEDICAL ADVICE <Vick Torres H - Last Filed: 05/15/16 15:09> Provider - Provider Date of Admission: 05/13/16 20:59 Attending physician: Jose Stallworth MD Hospital Course - Lab Results Lab Results: Most Recent Lab Values WBC 5.1 K/uL (4.8-10.8) 05/14/16 10:44 RBC 4.37 Mil/uL (4.40-5.90) L 05/14/16 10:44 Hgb 10.9 g/dL (12.0-18.0) L 05/14/16 10:44 Hct 34.9 % (35.0-51.0) L 05/14/16 10:44 MCV 79.7 fL (80.0-94.0) L 05/14/16 10:44 MCH 24.9 pg (27.0-31.0) L 05/14/16 10:44 MCHC 31.2 g/dL (33.0-37.0) L 05/14/16 10:44 RDW 14.5 % (11.5-14.5) 05/14/16 10:44 Plt Count 132 K/uL (130-400) 05/14/16 10:44 MPV 10.7 fL (7.2-11.7) 05/14/16 10:44 Neut % (Auto) 66.6 % (50.0-75.0) 05/14/16 10:44 Lymph % (Auto) 22.1 % (20.0-40.0) 05/14/16 10:44 [place] % (Auto) 9.5 % (0.0-10.0) 05/14/16 10:44 Eos % (Auto) 0.9 % (0.0-4.0) 05/14/16 10:44 Baso % (Auto) 0.9 % (0.0-2.0) 05/14/16 10:44 Neut # 3.4 K/uL (1.8-7.0) 05/14/16 10:44 Lymph # 1.1 K/uL (1.0-4.3) 05/14/16 10:44 [place] # 0.5 K/uL (0.0-0.8) 05/14/16 10:44 Eos # 0.0 K/uL (0.0-0.7) 05/14/16 10:44 Baso # 0.0 K/uL (0.0-0.2) 05/14/16 10:44 Retic Count 0.6 % (0.5-1.5) 05/14/16 18:49 Sodium 139 mmol/L (132-148) 05/14/16 10:44 Potassium 4.2 mmol/L (3.6-5.2) 05/14/16 10:44 Chloride 105 mmol/L (98-107) 05/14/16 10:44 Carbon Dioxide 19 mmol/L (22-30) L 05/14/16 10:44 Anion Gap 19 (10-20) 05/14/16 10:44 BUN 58 mg/dL (9-20) H 05/14/16 10:44 Creatinine 3.5 MG/DL (0.8-1.5) H 05/14/16 10:44 Est GFR ( Amer) 21 05/14/16 10:44 Est GFR (Non-Af Amer) 18 05/14/16 10:44 Random Glucose 114 mg/dL (75-110) H 05/14/16 10:44 Hemoglobin A1c 6.2 % (4.2-6.5) 05/14/16 10:44 Calcium 8.0 mg/dl (8.6-10.4) L 05/14/16 10:44 Phosphorus 4.2 mg/dL (2.5-4.5) 05/14/16 10:44 Magnesium 2.0 mg/dL (1.6-2.3) 05/14/16 10:44 Iron 39 ug/dL (49-181) L 05/14/16 18:49 TIBC 305 ug/dL (250-450) 05/14/16 18:49 % Saturation 14 (20-55) L 05/14/16 18:49 Ferritin 89.1 ng/mL 05/14/16 18:49 Total Bilirubin 0.9 mg/dL (0.2-1.3) 05/14/16 10:44 AST 105 U/L (17-59) H D 05/14/16 10:44 ALT 61 U/L (21-72) 05/14/16 10:44 Alkaline Phosphatase 131 U/L (38-126) H 05/14/16 10:44 Ammonia 13 umol/L (9-33) 05/14/16 10:44 Total Creatine Kinase 69 U/L (55-170) 05/14/16 20:52 CK-MB (Mass) 1.26 ng/mL (0.0-3.38) 05/14/16 20:52 Troponin I 0.0210 ng/mL (0.00-0.120) 05/13/16 19:31 Troponin I, Quant 0.0150 ng/mL (0.00-0.120) 05/14/16 20:52 NT-Pro-B Natriuret Pep 2780 pg/mL (0-900) H 05/13/16 19:31 Total Protein 6.7 g/dL (6.3-8.3) 05/14/16 10:44 Albumin 3.2 g/dL (3.5-5.0) L 05/14/16 10:44 Globulin 3.5 gm/dL (2.2-3.9) 05/14/16 10:44 Albumin/Globulin Ratio 0.9 (1.0-2.1) L 05/14/16 10:44 Vitamin B12 508 pg/mL (239-931) 05/14/16 10:44 25-OH Vitamin D Total 14.1 NG/ML (30.0-100.0) L 05/14/16 11:13 Folate > 20.0 ng/mL 05/14/16 18:49 Urine Color Yellow (YELLOW) 05/13/16 19:25 Urine Clarity Clear (Clear) 05/13/16 19:25 Urine pH 6.0 (5.0-8.0) 05/13/16 19:25 Ur Specific [place] 1.012 (1.003-1.030) 05/13/16 19:25 Urine Protein 2+ mg/dL (NEGATIVE) H 05/13/16 19:25 Urine Glucose (UA) Normal mg/dL (Normal) 05/13/16 19:25 Urine Ketones Negative mg/dL (NEGATIVE) 05/13/16 19:25 Urine Blood Negative (NEGATIVE) 05/13/16 19:25 Urine Nitrate Negative (NEGATIVE) 05/13/16 19:25 Urine Bilirubin Negative (NEGATIVE) 05/13/16 19:25 Urine Urobilinogen 2.0 mg/dL (0.2-1.0) 05/13/16 19:25 Ur Leukocyte Esterase Neg Ita/uL (Negative) 05/13/16 19:25 Urine WBC (Auto) < 1 /hpf (0-5) 05/13/16 19:25 Urine RBC (Auto) < 1 /hpf (0-3) 05/13/16 19:25 Ur Random Creatinine 53.8 mg/dL 05/14/16 01:03 Ur Random Sodium 65 mmol/L 05/14/16 01:03 Urine Opiates Screen Negative (NEGATIVE) 05/13/16 19:25 Urine Methadone Screen Negative (NEGATIVE) 05/13/16 19:25 Ur Barbiturates Screen Negative (NEGATIVE) 05/13/16 19:25 Phenytoin < 3.0 ug/mL (10-20) L 05/13/16 21:37 Ur Phencyclidine Scrn Negative (NEGATIVE) 05/13/16 19:25 Ur Amphetamines Screen Negative (NEGATIVE) 05/13/16 19:25 U Benzodiazepines Scrn Negative (NEGATIVE) 05/13/16 19:25 U Oth Cocaine Metabols Negative (NEGATIVE) 05/13/16 19:25 U Cannabinoids Screen Negative (NEGATIVE) 05/13/16 19:25 Alcohol, Quantitative < 10 mg/dl (0-10) 05/13/16 19:31 Hepatitis A IgM Ab Negative (NEGATIVE) 05/14/16 18:49 Hep Bs Antigen Negative (NEGATIVE) 05/14/16 18:49 Hep B Core IgM Ab Negative (NEGATIVE) 05/14/16 18:49 Hepatitis C Antibody Reactive (NEGATIVE) H 05/14/16 18:49 HIV 1&2 Antibody Screen Negative (NEGATIVE) 05/14/16 11:13 Attending/Attestation - Attestation I have personally seen and examined this patient.: Yes I have fully participated in the care of the patient.: Yes I have reviewed all pertinent clinical information, including history, physical exam and plan: Yes Notes (Text): Medical attending: Patient has left AMA before I was able to evaluate the patient Vick Torres
--- NOTE | 2016-05-15 18:37 | CP.PCM.PN ---
Subjective - Date & Time of Evaluation Date of Evaluation: 05/15/16 Time of Evaluation: 13:00 - Subjective Subjective: Patient has signed AMA. He is on Topamax, Ergocalciferol, Oscal and other medicine. He was hard to handle to his anger. No Seizures were documented until discharged. Objective - Vital Signs/Intake and Output Vital Signs (last 24 hours): Temp Pulse Resp BP Pulse Ox 98.2 F 70 20 160/94 H 97 05/15/16 08:34 05/15/16 08:34 05/15/16 08:34 05/15/16 08:34 05/15/16 08:34 - Labs Labs: 05/14/16 10:44 05/14/16 10:44 Assessment and Plan (1) Altered mental status, unspecified Status: Acute (2) CHF (congestive heart failure) Status: Acute (3) Elevated brain natriuretic peptide (BNP) level Status: Acute (4) HTN (hypertension) Status: Acute (5) History of alcohol use Status: Acute (6) Pain Status: Acute (7) History of seizure Status: Chronic
[2016-05-16] MEDS ORDERED: Pneumococcal 23-Valent Vaccine IM ONE (14:00)
[2016-05-16] MEDS ORDERED: Influenza Virus Vaccine 45 mcg/0.5 ml Syr IM ONE (14:00)
--- NOTE | 2016-05-24 07:18 | EEG ---
DATE: 05/14/2016 The record is obtained for a history of altered mental status, history of seizure disorder and hypert ension. The record was obtained while the patient was awake and drowsy. The record was symmetrically equal o n both sides with velocity of 8-9 cycles per second. The waves are fairly formed, fairly organized w ith a posterior distribution, moderate in amplitude, reactive to eye opening by attenuation. There a re no abnormal discharges. No spikes, no polyspike, no sharp wave, no focal slowing, no paroxysmal d ischarge. The record showed periods of drowsiness during which attenuation and slowing of the record were seen. The record did not show any changes with photic stimulation. The hyperventilation was o mitted. There are eye movement artifacts, electrode artifact, and muscle movement artifacts. In sum, this is a normal awake and drowsy EEG. Clinical correlation is recommended. Woody Francois MD cc: [id number] TT: 05/24/2016 07:17:36 Confirmation # [id number] Dictation # [id number]
== END 2016-05-15 09:05 | disposition left against medical advice (07) | DRG 135 ==
LOC: C.ER 16:30 → C.9E 20:59 → C.5T 05-14 01:01
PROVIDERS: ADMIT Internal Medicine; ATTEND Internal Medicine
DX: I34.0 Nonrheumatic mitral (valve) insufficiency (principal); I50.9 Heart failure, unspecified; E11.9 Type 2 diabetes mellitus without complications; F10.10 Alcohol abuse, uncomplicated; D63.8 Anemia in other chronic diseases classified elsewhere; B19.20 Unspecified viral hepatitis C without hepatic coma; R41.82 Altered mental status, unspecified; G40.909 Epilepsy, unspecified, not intractable, without status epilepticus; N28.9 Disorder of kidney and ureter, unspecified; Z59.0 Homelessness; Z68.23 Body mass index [BMI] 23.0-23.9, adult; M79.662 Pain in left lower leg; M79.661 Pain in right lower leg; F17.210 Nicotine dependence, cigarettes, uncomplicated